=== PATIENT | female | born 1950 | race Caucasian/White ===

== ENCOUNTER 2022-08-29 10:23 | Outpatient (AMB) | payer MEDICARE, SELFPAY ==
--- NOTE | 2022-08-29 10:28 | MHC.OFFVIS ---
Intake Vital Signs 08/29/22 11:03 Weight 163 lb BP 120/78 Pulse 62 Pulse Oximetry (%) 97 Intake Visit Reasons: Lung CA Intake Note: pt is a former smoker she quit on 08/05/2011. 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 Huddleston, here to establish follow-up. 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 Currently she is on Trelegy with reasonable control of her baseline symptoms. She does not have a post resection pulmonary function test. She does continue to follow-up with thoracic surgery. Patient denies any dyspnea particularly on exertion at this time. Review of Systems Const Denies daytime sleepiness, Denies excessive sweating, Denies fatigue, Denies fever(s), Denies lethargy, Denies malaise, Denies night sweats, Denies snoring and Denies weight loss Eyes Denies blurry vision and Denies itchy eyes ENT Denies nasal congestion, Denies post nasal drip, Denies sinus pain, Denies sinus pressure and Denies other ( Thrush) Card Denies chest pain, Denies pedal edema, Denies dyspnea, Denies orthopnea and Denies paroxysmal nocturnal dyspnea Resp Denies cough, Denies hemoptysis, Denies excessive phlegm production, Denies dyspnea, Denies snoring and Denies wheezing GI Denies abdominal pain and Denies heartburn Musc Denies myalgias, Denies arthralgias and Denies joint swelling Skin/Breast Denies rash Neuro Denies memory loss and Denies seizure-like activity Psych Denies abnormal sleep pattern, Denies anxiety and Denies memory loss Endo Denies excessive sweating, Denies fatigue and Denies heat intolerance Cal/Lymph Denies easy bruising Aller/Immun Denies itchy eyes, Denies seasonal rhinorrhea and Denies wheezing Physical Exam Vital Signs: Last Vital Signs Pulse 62 08/29/22 11:03 BP 120/78 08/29/22 11:03 Pulse Ox 97 08/29/22 11:03 Const General: no acute distress and alert Nutritional Appearance: not obese Orientation/consciousness: Other orientation findings ( oriented) HEENT Head: Yes atraumatic Eyes General: appearance normal, both eyes and all related structures Sclerae: sclerae normal EOM: EOMs intact bilaterally Neck Neck: Yes supple Lymphatic: no lymphadenopathy noted Resp Effort & Inspection: normal respiratory effort and no use of accessory muscles Auscultation: clear to auscultation bilaterally Cardio Rate: regular rate Rhythm: regular rhythm Heart sounds: no gallops, no murmurs and no rubs Skin General skin exam: other ( warm) Extrem General: No clubbing, No cyanosis and No edema Assessment & Plan Assessment & Plan (1) COPD (chronic obstructive pulmonary disease): Code(s): J44.9 - Chronic obstructive pulmonary disease, unspecified Plan: Underlying COPD of unclear severity now reasonably controlled on Trelegy. Will add albuterol MDI and obtain full PFT. History of left lower lobectomy for lung adenocarcinoma, patient continues to follow-up with thoracic surgery. Orders: Orders PFT pulmonary function test Today J44.9 - Chronic obstructive pulmonary disease, unspecified Medications: New albuterol sulfate 90 mcg/actuation 2 puffs inhalation Q4-6H PRN 1 ea 6RF shortness of breath or wheezing 30 days Coding Level of Care Code New Pt Level 3 (81082) Diagnoses COPD (chronic obstructive pulmonary disease) J44.9
[2022-08-29 11:03] VITALS: BP 120/78; PULSE 62; O2SAT 97
== END 2022-08-29 10:59 | disposition home or self-care (01) ==
PROVIDERS: PCP Physician Assistant; Visit Provider Internal Medicine Pulmonary Disease
DX: J44.9 Chronic obstructive pulmonary disease, unspecified (principal)
CPT/HCPCS: 99203

== ENCOUNTER → 2022-08-29 10:23 | Outpatient (BNVA) | payer MEDICARE, SELFPAY | PROVIDERS: PCP Physician Assistant; Visit Provider Internal Medicine Pulmonary Disease | DX: C34.90 Malignant neoplasm of unspecified part of unspecified bronchus or lung (principal); J44.9 Chronic obstructive pulmonary disease, unspecified; Z87.891 Personal history of nicotine dependence | CPT/HCPCS: 99202 ==

== ENCOUNTER 2022-09-07 11:11 | Outpatient (REF) | payer MEDICARE, SELFPAY ==
--- NOTE | 2022-09-07 13:20 | PFT_ITS ---
INDICATION: COPD and lung cancer. SPIROMETRY: FEV1 to FVC of 82% with an FEV1 of 1.66 L, which is 75% predicted. FVC of 2.02 L, which is 68% predicted. No significant response to bronchodilators noted. Maximum voluntary ventilation 49% predicted. LUNG VOLUMES: Total lung capacity 70% predicted. DIFFUSION CAPACITY: DLCO 73% predicted. COMPARISONS: None. INTERPRETATION: No obstructive ventilatory defects. No significant response to bronchodilators noted. There is a moderate decrease in the maximum voluntary ventilation. In addition to that, there is a restrictive ventilatory defect consistent with mild restrictive lung disease. The patient also has a mild diffusion impairment. Clinical correlation warranted. MD ESAU Greer/MODL / [id number]
== END 2022-09-07 11:12 | disposition home or self-care (01) ==
LOC: HO.RESP 11:11
PROVIDERS: PCP Physician Assistant; Visit Provider Internal Medicine Pulmonary Disease
DX: J44.9 Chronic obstructive pulmonary disease, unspecified (principal)
CPT/HCPCS: 94010; 94727; 94729

== ENCOUNTER → 2022-09-07 13:20 | Outpatient (BNV) | payer MEDICARE, SELFPAY | PROVIDERS: PCP Physician Assistant; Visit Provider Hospitalist | DX: J44.9 Chronic obstructive pulmonary disease, unspecified (principal) | CPT/HCPCS: 94060; 94727; 94729 ==

== ENCOUNTER 2023-08-28 15:01 | Outpatient (AMB) | payer MEDICARE, SELFPAY ==
[2023-08-28 15:06] VITALS: BP 124/64; PULSE 73; O2SAT 97; BMI 26.7
--- NOTE | 2023-08-28 15:06 | A.OFFVIS_ITS ---
Vital Signs 08/28/23 15:06 Height 5 ft 4 in Weight 155 lb 6.814 oz BMI 26.7 BP 124/64 Blood Pressure Location Lt brachial Position Sitting Pulse 73 Pulse Source Doppler Pulse Oximetry (%) 97 Oxygen Delivery Method Room Air Intake Visit Reasons: COPD Allergies No Known Allergies Allergy (Verified 08/29/22 10:54) HPI HPI COPD: Details: 71-year-old lady, former 40+ pack-year smoker, quit 10 years prior, with underlying history of left lower lobectomy in March of 2022 for lung adenocarcinoma/carcinoid tumors at [facility], previously seen by Dr. Huddleston, now followed for mild COPD. 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 Currently she is on Anoro with reasonable control of her baseline symptoms. Patient denies dyspnea or any recent exacerbations. Review of Systems Const Denies daytime sleepiness, Denies excessive sweating, Denies fatigue, Denies fever(s), Denies lethargy, Denies malaise, Denies night sweats, Denies snoring and Denies weight loss Eyes Denies blurry vision and Denies itchy eyes ENT Denies nasal congestion, Denies post nasal drip, Denies sinus pain, Denies sinus pressure and Denies other ( Thrush) Card Denies chest pain, Denies pedal edema, Denies dyspnea, Denies orthopnea and Denies paroxysmal nocturnal dyspnea Resp Denies cough, Denies hemoptysis, Denies excessive phlegm production, Denies dyspnea, Denies snoring and Denies wheezing GI Denies abdominal pain and Denies heartburn Musc Denies myalgias, Denies arthralgias and Denies joint swelling Skin/Breast Denies rash Neuro Denies memory loss and Denies seizure-like activity Psych Denies abnormal sleep pattern, Denies anxiety and Denies memory loss Endo Denies excessive sweating, Denies fatigue and Denies heat intolerance Cal/Lymph Denies easy bruising Aller/Immun Denies itchy eyes, Denies seasonal rhinorrhea and Denies wheezing Physical Exam Vital Signs: Last Vital Signs Pulse 73 08/28/23 15:06 BP 124/64 08/28/23 15:06 Pulse Ox 97 08/28/23 15:06 Oxygen Delivery Method Room Air 08/28/23 15:06 BMI result Body Mass Index 26.7 Const General: no acute distress and alert Nutritional Appearance: not obese Orientation/consciousness: Other orientation findings ( oriented) HEENT Head: Yes atraumatic Eyes General: appearance normal, both eyes and all related structures Sclerae: sclerae normal EOM: EOMs intact bilaterally Neck Neck: Yes supple Lymphatic: no lymphadenopathy noted Resp Effort & Inspection: normal respiratory effort and no use of accessory muscles Auscultation: clear to auscultation bilaterally Cardio Rate: regular rate Rhythm: regular rhythm Heart sounds: no gallops, no murmurs and no rubs Skin General skin exam: other ( warm) Extrem General: No clubbing, No cyanosis and No edema Assessment & Plan Assessment & Plan (1) COPD (chronic obstructive pulmonary disease): Code(s): J44.9 - Chronic obstructive pulmonary disease, unspecified Category: Medical Plan: Results of pulmonary function test reviewed, underlying mild COPD well controlled current regimen of Anoro and albuterol MDI. Continue current regimen. Coding Level of Care Code Est Pt Level 4 (62196) Diagnoses COPD (chronic obstructive pulmonary disease) J44.9
== END 2023-08-28 15:23 | disposition home or self-care (01) ==
PROVIDERS: PCP Physician Assistant; Visit Provider Internal Medicine Pulmonary Disease
DX: J44.9 Chronic obstructive pulmonary disease, unspecified (principal)
CPT/HCPCS: 99214

== ENCOUNTER → 2023-08-28 15:01 | Outpatient (BNVA) | payer MEDICARE, SELFPAY | PROVIDERS: PCP Physician Assistant; Visit Provider Internal Medicine Pulmonary Disease | DX: J44.9 Chronic obstructive pulmonary disease, unspecified (principal); Z85.118 Personal history of other malignant neoplasm of bronchus and lung; Z87.891 Personal history of nicotine dependence | CPT/HCPCS: 99212 ==